=== PATIENT | female | born 1980 | race Caucasian/White ===

== ENCOUNTER 2020-07-16 13:11 | Outpatient (RCR) | payer MEDICAID, SELFPAY | END 2020-07-18 23:59 | disposition home or self-care (01) | LOC: MPT 13:11 | PROVIDERS: PCP Nurse Practitioner; Referring Provider Nurse Practitioner; Visit Provider Nurse Practitioner | DX: M54.2 Cervicalgia (principal); M54.5 Low back pain | CPT/HCPCS: 97161; 97530 ==

== ENCOUNTER → 2021-02-19 17:36 | Outpatient (BNVA) | payer BC, MEDICAID, SELFPAY | PROVIDERS: PCP Nurse Practitioner; Visit Provider Nurse Practitioner Family | DX: M54.9 Dorsalgia, unspecified (principal); G54.0 Brachial plexus disorders; N39.0 Urinary tract infection, site not specified | CPT/HCPCS: 81000 ==